=== PATIENT | female | born 1955 | race Caucasian/White ===

== ENCOUNTER → 2017-07-23 | Outpatient (CLI) | payer OTHER ==
[~2017-07-23] MED LIST: OXYB5 PO
[2017-07-25 13:56] LABS: Source Vaginal/Cervical
== END | disposition home or self-care (01) ==
LOC: LAB 14:30
PROVIDERS: Family Medicine
DX: Z12.72 Encounter for screening for malignant neoplasm of vagina (principal); Z90.710 Acquired absence of both cervix and uterus
CPT/HCPCS: G0145